=== PATIENT | female | born 1955 | race Caucasian/White ===

== ENCOUNTER 2018-10-27 05:54 | Day surgery (SDC) | payer BC ==
[2018-10-26 17:01] LABS: BASOPHILS % (AUTO) 0.3 % (0-1); EOSINOPHILS # (AUTO) 0.3 X10'3 (0-0.9); HEMATOCRIT 37.3 % (35.0-45.0); HEMOGLOBIN 12.3 g/dl (12.0-16.0); LYMPHOCYTES # (AUTO) 2.9 X10'3 (1.1-4.8); LYMPHOCYTES % (AUTO) 37.5 % (21-51); MEAN CORPUSCULAR HEMOGLOBIN 30.1 PG (27.0-31.0); MEAN CORPUSCULAR VOLUME 91.3 FL (78-98); MEAN PLATELET VOLUME 8.3 FL (7.4-10.4); MONOCYTES # (AUTO) 0.4 X10'3 (0-0.9); MONOCYTES % (AUTO) 4.8 % (2-12); NEUTROPHILS # (AUTO) 4.1 X10'3 (1.8-7.7); NEUTROPHILS % (AUTO) 53.4 % (42-75); PLATELET COUNT 251 X10'3 (140-440); RED BLOOD COUNT 4.09 X10'6 (4.20-5.60); RED CELL DISTRIBUTION WIDTH 14.5 % (11.5-14.5); WHITE BLOOD COUNT 7.7 X10'3 (4.5-11.0)
[2018-10-26 17:08] LABS: PARTIAL THROMBOPLASTIN TIME 28 SECONDS (22-32); PROTHROMBIN TIME 10.3 SECONDS (9.0-12.0)
[2018-10-26 17:14] LABS: ALBUMIN 3.9 G/DL (3.4-5.0); ANION GAP 8 (8-16); BLOOD UREA NITROGEN 18 MG/DL (7-18); BUN/CREATININE RATIO 19.4 (6.6-38.0); CALCIUM 9.5 MG/DL (8.5-10.1); CHLORIDE 102 MMOL/L (99-107); CREATININE 0.93 MG/DL (0.40-0.90); GLUCOSE 90 MG/DL (70-104); POTASSIUM 4.1 MMOL/L (3.5-5.1); SODIUM 140 MMOL/L (135-145); TOTAL CARBON DIOXIDE 30.3 MMOL/L (24-32); eGFR 61 ML/MIN
[~2018-10-27] VITALS: Ht 152.4 cm; Wt 98.0 kg
[2018-10-27] VITALS (18 sets, daily range): BP systolic 134–166; BP diastolic 42–99
[2018-10-27] MEDS ORDERED: LORazepam 0.5 MG tablet PO PRN (06:10)
[2018-10-27] MEDS ORDERED: normal saline 1000ml 1,000 ML IV SCH (06:10)
[2018-10-27] MEDS ORDERED: LIDOcaine 1% (10mg/ml) 2ml vial ONE (06:10)
[2018-10-27] MEDS ORDERED: diphenhydrAMINE 25mg capsule PO PRN (06:10)
[2018-10-27] MEDS ORDERED: MELA5TAB14 PO (06:27)
[2018-10-27] MEDS ORDERED: CARV-49 PO (06:27)
[2018-10-27] MEDS ORDERED: B12 PO (06:27)
[2018-10-27] MEDS ORDERED: ATOR10TA87 PO (06:27)
[2018-10-27] MEDS ORDERED: FISH1CAP15 PO (06:27)
[2018-10-27] MEDS ORDERED: ISOS20TA6 PO (06:27)
[2018-10-27] MEDS ORDERED: ASPI-611 PO (06:27)
[2018-10-27] MEDS ORDERED: MULT-1085 PO (06:27)
[2018-10-27] MEDS ORDERED: SERT100T10 PO (06:27)
[2018-10-27] MEDS ORDERED: NAPR220T67 PO (06:27)
[2018-10-27] MEDS ORDERED: OMEP20TA23 PO (06:27)
[2018-10-27] MEDS ORDERED: IBUP-2417 PO (06:27)
[2018-10-27] MEDS ORDERED: LIDOcaine/PRILOcaine 5gm cream TP ONE (07:15)
[2018-10-27] MEDS ORDERED: nitroGLYCERIN-Tridil 50MG/D5W 250 ML IV ONE (07:23)
[2018-10-27] MEDS ORDERED: fentaNYL/PF 50MCG/1 ML 2ML syringe ONE (07:23)
[2018-10-27] MEDS ORDERED: heparin 1,000unit/ml 10ml vial 10 ML ONE (07:23)
[2018-10-27] MEDS ORDERED: LIDOcaine 1% (10mg/ml)w/preservative injection 20ml MDV ONE (07:23)
[2018-10-27] MEDS ORDERED: iohexol 350MG/ML 100ml bottle IV ONE (07:23)
[2018-10-27] MEDS ORDERED: midazolam 2 mg/2 ml injection ONE (07:23)
[2018-10-27] MEDS ORDERED: iohexol 350 MG/ML 50ML vial IV ONE ×2 (07:23→09:24)
[2018-10-27] MEDS ORDERED: verapamil 2.5 mg/ml inj IV ONE (07:24)
[2018-10-27] MEDS ORDERED: naproxen sodium 220mg tablet PO PRN (14:00)
[2018-10-27] MEDS ORDERED: normal saline 1000ml 1,000 ML IV ONE (14:30)
[2018-10-27] MEDS ORDERED: HYDROcodone/acetaminophen 5mg/325mg tablet PO PRN (14:35)
[2018-10-27] MEDS ORDERED: HYDROcodone/acetaminophen 10/325mg tab PO PRN (14:35)
--- NOTE | 2018-10-27 16:07 | NUR ---
Problems reprioritized. Patient report given, questions answered & plan of care reviewed with DAVID BIRD.
[2018-10-27] MEDS ORDERED: carvedilol 6.25mg tablet PO SCH (20:00)
[2018-10-27] MEDS ORDERED: Melatonin 3mg tablet PO SCH (21:00)
[2018-10-28] MEDS ORDERED: pantoprazole 40mg Tablet.DR PO SCH (07:30)
[2018-10-28] MEDS ORDERED: atorvastatin 10mg tablet PO SCH (08:00)
[2018-10-28] MEDS ORDERED: cyanocobalamin 500mcg tablet PO SCH (08:00)
[2018-10-28] MEDS ORDERED: ibuprofen tablet 400 MG TABLET PO SCH (08:00)
[2018-10-28] MEDS ORDERED: sertraline 50mg tablet PO SCH (08:00)
[2018-10-28] MEDS ORDERED: multivitamins, therapeutics tablet PO SCH (08:00)
[2018-10-28] MEDS ORDERED: isosorbide mononitrate 30mg tab.SR.24H PO SCH (08:00)
[2018-10-28] MEDS ORDERED: OMEGA-3/DHA/EPA/FISH OIL 1 EACH CAPSULE.DR PO SCH (08:00)
[2018-10-28] MEDS ORDERED: aspirin 81mg tab.chew PO SCH (08:30)
== END 2018-10-27 17:55 | disposition home or self-care (01) ==
LOC: SSTAY O 05:54
PROVIDERS: ATTEND Internal Medicine Cardiovascular Disease
DX: I25.10 Atherosclerotic heart disease of native coronary artery without angina pectoris (principal); I10 Essential (primary) hypertension; E78.5 Hyperlipidemia, unspecified; K21.9 Gastro-esophageal reflux disease without esophagitis; F32.9 Major depressive disorder, single episode, unspecified; Z98.890 Other specified postprocedural states; Z90.49 Acquired absence of other specified parts of digestive tract; Z88.1 Allergy status to other antibiotic agents; Z88.0 Allergy status to penicillin; Z79.82 Long term (current) use of aspirin
CPT/HCPCS: 36415; 80048; 85025; 85610; 85730; 93005; 93458; 99152; 99153; A6257; J1644; J2001; J2250; J3010; J3490; J7030; Q0163; Q9967; A4620; C1769

== ENCOUNTER 2018-10-29 10:51 | Emergency (ER) | payer BC ==
[~2018-10-29] VITALS: Ht 152.4 cm; Wt 98.3 kg
[~2018-10-29 10:51] MED LIST: ASPI-611 PO; ATOR10TA87 PO; B12 PO; CARV-49 PO; FISH1CAP15 PO; IBUP-2417 PO; ISOS20TA6 PO; MELA5TAB14 PO; MULT-1085 PO; NAPR220T67 PO; OMEP20TA23 PO; SERT100T10 PO
--- NOTE | 2018-10-29 13:36 | NUR ---
VASCULAR DONE OF RIGHT UPPER THIGH. NOW A WAITING US. PT DENIES NEEDS AT THIS TIEM
[2018-10-29] MEDS ORDERED: morphine 2 MG/ML inj. syringe IV ONE (15:00)
[2018-10-29] MEDS ORDERED: ondansetron/PF 4mg/2ml inj IV ONE (15:00)
--- NOTE | 2018-10-29 15:25 | NUR ---
US AT ATTEMPTED US COMPRESSION. PAIN 10/10 MORPHINE AND ZOFRAN GIVEN. US WILL ATTEMPT AGAIN
--- NOTE | 2018-10-29 16:28 | NUR ---
COMPRESSION U/S UNSUCCESSFUL. DOMONIQUE WISE MADE AWARE, AND ORDERED FEM STOP TO BE PLACED FOR 30 MINUTES. FEM STOP PLACED AT SITE WITH 53mmHg OF PRESSURE.
--- NOTE | 2018-10-29 17:17 | NUR ---
Pressure released from Fem Stop after 45 minutes. Vascular has been paged. Pt reports some relief following releade of Fem Stop.
--- NOTE | 2018-10-29 18:01 | NUR ---
VASCULAR AT BS.
--- NOTE | 2018-10-29 18:15 | NUR ---
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 Informed PA Vahid, as well as PA Peralta. Fem Stop then reapplied to site using US at 55mmHg. Cap Refill 2secs, 2+ DP/PT pulses on right. US to return in one hour, states new order not needed.
[2018-10-29 20:38] VITALS: BP 163/104
== END 2018-10-29 20:42 | disposition home or self-care (01) ==
LOC: ER 10:52
DX: I72.4 Aneurysm of artery of lower extremity (principal); I10 Essential (primary) hypertension; I25.10 Atherosclerotic heart disease of native coronary artery without angina pectoris; Z88.0 Allergy status to penicillin; Z88.2 Allergy status to sulfonamides; Z79.82 Long term (current) use of aspirin; Z98.890 Other specified postprocedural states
CPT/HCPCS: 76936; 93005; 93926; 93971; 96374; 96375; 99284; J2270; J2405

== ENCOUNTER 2018-11-11 08:03 | Day surgery (SDC) | payer BC ==
[~2018-11-11] VITALS: Ht 152.4 cm; Wt 97.1 kg
[~2018-11-11 08:03] MED LIST changes: +LIDOcaine 1% 30ml preserv. free vial IJ STA
[2018-11-11 08:43] VITALS: BP 143/92
[2018-11-11] MEDS ORDERED: Thrombin (Bovine) 5,000 unit vial TP ONE (10:20)
[2018-11-11] MEDS ORDERED: LIDOcaine 1%/PF 5ML 10 MG/ML VIAL ONE (10:32)
== END 2018-11-11 11:15 | disposition home or self-care (01) ==
LOC: SSTAY O 08:03
PROVIDERS: ATTEND Radiology Vascular & Interventional Radiology
DX: I72.8 Aneurysm of other specified arteries (principal); I10 Essential (primary) hypertension; E66.9 Obesity, unspecified; K21.9 Gastro-esophageal reflux disease without esophagitis; E78.5 Hyperlipidemia, unspecified; F32.9 Major depressive disorder, single episode, unspecified; Z90.49 Acquired absence of other specified parts of digestive tract; Z98.890 Other specified postprocedural states; Z88.0 Allergy status to penicillin; Z88.8 Allergy status to other drugs, medicaments and biological substances; Z79.899 Other long term (current) drug therapy
CPT/HCPCS: 76882; J2001

== ENCOUNTER → 2024-12-14 | Outpatient (CLI) | payer MEDICARE ==
[~2024-12-14] MED LIST changes: -ISOS20TA6 PO; -LIDOcaine 1% 30ml preserv. free vial IJ STA; -MELA5TAB14 PO; +MELA5TAB66 PO; +SERT-434 PO; -SERT100T10 PO
--- NOTE | 2024-12-15 05:51 | RADIOLOGY REPORT ---
CLINICAL INDICATION: 69 years old, Female; EFFUSION,LEFT ANKLE;PAIN IN LEFT FOOT. TECHNIQUE: Noncontrast CT of the left ankle was performed. Sagittal and coronal reformatted images ar e provided. COMPARISON: None CT Dose: CTDI volume is 14.4 mGy. Dose-length product is 246.4 mGy*cm FINDINGS: There are postsurgical changes from arthrodesis of the calcaneus and the cuboid. There is a bone bloc k in between the calcaneus and cuboid. There are screws within the subtalar joint. There also screws traversing the tarsal bones and calcaneus. There is a nother bone block in the medial cuneiform. Bhaskar dware appears to be intact. There is no solid fusion across the subtalar joint space or across the ca lcaneocuboid joint space. No definite fusion noted across the tarsal bone and calcaneus. No acute fr acture. Soft tissue swelling of the foot. No significant joint effusion. Bone harvest site noted in t he distal tibia. The talar dome is smooth and the ankle mortise is symmetric. IMPRESSION: 1. Postsurgical changes from multiple arthrodeses in the left hindfoot. No definite bony fusion noted . 2. Soft tissue swelling. No acute osseous abnormality. All CT scans at this medical facility are performed using dose modulation techniques as appropriate t o a performed exam including the following: Automated exposure control was utilized; adjustment of th e MA and/or KV according to patient size; and use of iterative reconstruction technique.
--- NOTE | 2024-12-15 08:42 | RADIOLOGY REPORT ---
CLINICAL INDICATION: 69 years old, Female; EFFUSION,LEFT ANKLE;PAIN IN LEFT FOOT. TECHNIQUE: Noncontrast CT of the left foot was performed. Sagittal and coronal reformatted images are provided. COMPARISON: None CT Dose: CTDI volume is 14.4 mGy. Dose-length product is 246.4 mGy*cm FINDINGS: There are postsurgical changes from arthrodesis of the calcaneus and the cuboid. There is a bone bloc k in between the calcaneus and cuboid. There are screws within the subtalar joint. There also screws traversing the tarsal bones and calcaneus. There is a nother bone block in the medial cuneiform. Hard malik appears to be intact. There is no solid fusion across the subtalar joint space or across the agueda caneocuboid joint space. No definite fusion noted across the tarsal bone and calcaneus. No acute frac ture. Soft tissue swelling of the foot. No significant joint effusion. Bone harvest site noted in the distal tibia. The talar dome is smooth and the ankle mortise is symmetric. IMPRESSION: 1. Postsurgical changes from multiple arthrodeses in the left hindfoot. No definite bony fusion noted . 2. Soft tissue swelling. No acute osseous abnormality. All CT scans at this medical facility are performed using dose modulation techniques as appropriate t o a performed exam including the following: Automated exposure control was utilized; adjustment of th e MA and/or KV according to patient size; and use of iterative reconstruction technique.
== END | disposition home or self-care (01) ==
LOC: RAD 14:13
PROVIDERS: ATTEND Podiatrist Foot & Ankle Surgery
DX: M21.42 Flat foot [pes planus] (acquired), left foot (principal); M25.472 Effusion, left ankle; M79.672 Pain in left foot; M25.375 Other instability, left foot; M25.572 Pain in left ankle and joints of left foot; M25.471 Effusion, right ankle; M21.6X2 Other acquired deformities of left foot; M25.374 Other instability, right foot; M25.571 Pain in right ankle and joints of right foot; Z98.1 Arthrodesis status; Z98.890 Other specified postprocedural states; M79.89 Other specified soft tissue disorders
CPT/HCPCS: 73700

== ENCOUNTER 2025-03-13 08:09 | Observation (INO) | payer MEDICARE ==
[2025-03-08 15:39] LABS: MEAN PLATELET VOLUME 8.0 FL (7.4-10.4); PRE OP HEMATOCRIT 39.4 % (35.0-45.0); PRE OP HEMOGLOBIN 13.5 g/dL (12.0-16.0); PRE OP PLATELET COUNT 224 X10'3 (140-440); PRE OP WHITE BLOOD COUNT 8.4 10'3 (4.8-10.8); RED CELL DISTRIBUTION WIDTH 14.8 % (11.5-14.5)
[2025-03-08 15:42] LABS: LEUKOCYTE ESTERASE ,URINE NEGATIVE (Neg); NITRITES, URINE NEGATIVE (Neg); OCCULT BLOOD,URINE SMALL (Neg)
[2025-03-08 15:52] LABS: PRE OP ANION GAP 4 (8-16); PRE OP GLUCOSE 86 MG/DL (70-104); PRE OP POTASSIUM 3.8 MMOL/L (3.4-5.1); PRE OP SODIUM 138 MMOL/L (135-145); TOTAL CARBON DIOXIDE 32.3 MMOL/L (24-32)
[2025-03-08 15:53] LABS: CREATININE 0.89 MG/DL (0.40-0.90); PRE OP ALT 27 U/L (30-65); PRE OP AST 14 U/L (10-37); PRE OP BILIRUB, TOTAL 0.6 MG/DL (0.0-1.0); eGFR 63 ML/MIN
[2025-03-08 15:57] LABS: UA COLLECTION TYPE CLN CATCH MIDSTREAM
[2025-03-08 16:04] LABS: SQUAMOUS EPITHELIAL CELL,UR MODERATE /LPF (FEW)
[2025-03-08 16:08] LABS: CAL OXALATE CRYSTALS FEW /HPF (NEGATIVE)
[2025-03-13] VITALS (23 sets, daily range): BP systolic 101–153; BP diastolic 58–105; PULSE 73–88; RESP 9–20; TEMP 96.5–97.8; O2SAT 89–100
[~2025-03-13] VITALS: Ht 154.9 cm; Wt 93.1 kg
[2025-03-13] MEDS: DOCUMENT DATE & TIME OF BETA-BLOCKER PO ONE (05:30)
[~2025-03-13 08:09] MED LIST changes: -B12 PO; +CETI10CA PO; -FISH1CAP15 PO; -IBUP-2417 PO; -MULT-1085 PO; -NAPR220T67 PO; +OMEP-271 PO; -OMEP20TA23 PO; -SERT-434 PO; +SERT150C PO
[2025-03-13] MEDS ORDERED: cloNIDine hcl/PF 100mcg/ml inj ONE (09:26)
[2025-03-13] MEDS: VANCOMYCIN/H2O 1.5g/300mL PB 300 ML IV ONE (09:31)
[2025-03-13] MEDS: ringers solution, lacted 1,000 ML IV SCH ×2 (09:31→13:55)
[2025-03-13] MEDS ORDERED: bacitracin 15gm ointment TP ONE (09:35)
[2025-03-13] MEDS ORDERED: BUPIVAcaine 2.5mg/ml inj 50ml vial (contains preservative) ONE (09:36)
[2025-03-13] MEDS ORDERED: fentaNYL /PF 50mcg/ml 5ml ampule ONE (10:28)
[2025-03-13] MEDS ORDERED: midazolam 1 mg/ML 2ml injection ONE (10:28)
[2025-03-13] MEDS ORDERED: heparin 10,000 units/1 ML INJ ONE (11:41)
[2025-03-13] MEDS ORDERED: propofol inj 20 ML IV ONE ×2 (11:52)
[2025-03-13] MEDS ORDERED: ePHEDrine 50MG/ML INJ. ONE (11:52)
[2025-03-13] MEDS ORDERED: dexamethasone sod phosphate 4mg/ml inj. ONE (11:53)
[2025-03-13] MEDS ORDERED: LIDOcaine 2% (20mg/ml) 5ml vial ONE (11:53)
[2025-03-13] MEDS ORDERED: ROPIVAcaine 0.5% (5mg/ml) 30ml vial ONE (11:53)
[2025-03-13] MEDS ORDERED: 0.9 % SODIUM CHLORIDE 10 ML VIAL ONE ×2 (11:53)
[2025-03-13] MEDS ORDERED: magnesium hydroxide 30ml (MOM) UD suspension PO PRN (13:50)
[2025-03-13] MEDS ORDERED: bisacodyl 10mg suppository rectal RC PRN (13:50)
[2025-03-13] MEDS ORDERED: ondansetron/PF 4mg/2ml inj IV PRN ×2 (13:50→13:55)
[2025-03-13] MEDS ORDERED: hydrALAZINE 20mg/ml inj. IV PRN (13:55)
[2025-03-13] MEDS ORDERED: morphine 4 MG/ML inj SYRINge IV PRN (13:55)
[2025-03-13] MEDS ORDERED: meperidine/PF 25mg/ml syringe IV PRN (13:55)
[2025-03-13] MEDS ORDERED: labetalol 20mg/4ml (5mg/ml) syringe IV PRN (13:55)
[2025-03-13] MEDS ORDERED: HYDROmorphone/PF 0.2 MG/ML SYRINGE IV PRN ×2 (13:55)
[2025-03-13] MEDS: acetaminophen 1,000mg/100ml IV 100 ML IV PRN (14:53)
--- NOTE | 2025-03-13 15:20 | OPERATIVE REPORT ---
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 PROCEDURES: * Bone marrow aspiration harvest, tibia. * Hardware removal. * Revision triple arthrodesis. * Revision cotton medial cuneiform arthrodesis. This is all left foot and ankle. SURGEON: Jose Casas DPM INTRAMURAL DIRECTOR: Dr. Brett Spencer, KIMANI fellow. External Grinder Tool was needed to decrease tourniquet time, help with efficiency and retraction throughout the entirety of the procedure. ANESTHESIA: General anesthesia. HEMOSTASIS: A thigh tourniquet at 300 mmHg. FINDINGS: None. COMPLICATIONS: None. SPECIMENS: We sent left foot bone for pathological specimen. ESTIMATED BLOOD LOSS: Less than 20 mL. HARDWARE: We used DJO and [id number]. INDICATIONS: The patient presented to the office with the above-listed complaints, which have been unresponsive to conservative treatment options, thus, surgical options have been offered along with all potential risks, complications, and surgical outcomes being fully explained to the patient's level of understanding. No guarantees were given. Clinical and radiographic data correlate with the above diagnosis. The patient received a triple arthrodesis for her bad hindfoot instability and flatfoot, and unfortunately, after appropriate nonoperative and operative care, the patient still had pain and still had nonunions based on a CT scan. I offered a surgical fixation as well as revision of the nonunion sites. She understood that there are no guarantees with the revision and nonunion site, but I did offer to hopefully give her some more stability and give her better pain relief once we can achieve more fusion. This is the route that she elected to undergo. DESCRIPTION OF PROCEDURE: The patient was brought to the operating room and placed on the operating room in the supine position. The patient was induced under general anesthesia. The left foot and ankle were prepped and draped in the usual aseptic fashion. Previously applied thigh tourniquet was inflated to 300 mmHg after a timeout was called and preoperative antibiotics were given and dosed appropriately. Hardware removal of left foot and ankle. We then brought our attention to the medial and lateral aspects of the patient's left foot. Under fluoroscopic imaging, I did isolate all of the hardware, which was the [employer] hardware and we did place guidewires down the cannulated screws and then we removed all of the hardware using a hardware removal set. We had to make multiple incisions in order to do this. All the hardware was removed and intraoperative fluoroscopic imaging confirmed this. BMA, bone marrow aspirate harvest. Before the tourniquet was even inflated, we did isolate the medial proximal tibial face, and at this region, we then inserted a Jamshidi needle attached to a 30 mL syringe and we obtained a large amount of bone marrow aspiration within the syringe, which was then mixed with heparin and then placed with a DBM bone putty mixture for further implantation into our nonunion sites. This small incision was closed using a nylon. Revision triple arthrodesis. We then brought our attention to the medial and lateral aspect of the patient's hindfoot. We isolated the CC of the subtalar joint and the talonavicular joints. It was noted that there was a large portion of the talonavicular joint that appeared to be fused and had crossing arthrodesis sites. Of the subtalar joint, there was a good portion of the subtalar joint that had bony bridging as well, but there was also an area of nonunion. We did prep all of the areas of nonunion that we could visualize with a curette, a rongeur, and then a rozina. We made sure to do this until fresh bleeding bone was identified. As we opened the calcaneocuboid joint region, there was an allograft wedge that we had placed in there originally and this bone did not look healthy, so therefore, we took a specimen of this bone and sent it for our pathological specimen. It appeared to be of the appearance of bone, so therefore, we resected all the bone that we could visualize. We then re-prepped the CC joint appropriately. We then filled all of our regions with a DBM bone putty mixed with our BMA harvest and this was then stuffed into the appropriate region. After this, we then placed a locking plate medially and laterally over the TN and the calcaneocuboid joint. We then placed a Dighton 7.0 DJO screw through the subtalar joint. All of our screws and hardware had excellent compression, stability, and placement of our hardware once we checked using intraoperative fluoroscopic imaging. It was noted that there was excellent stability of all of our hindfoot once we stressed under fluoroscopic imaging as well. Revision cotton medial cuneiform osteotomy. We then made a separate incision over the cotton site. We dissected down to the cotton site after we made this incision using similar dissection technique, and unfortunately, the cotton site appeared to be of the same appearance of the calcaneocuboid bone. The allograft did not take and looked to be of bone, so therefore, we resected all that we could and then re-fenestrated until fresh blading bone was identified and then replaced the graft. A [id number] wedge was then used and we went up a millimeter in the size wedge that we felt like we needed in order to achieve some more compression and this was a size 6 small [id number] cotton wedge. This was soaked in our BMA, and then we placed it into our region of the medial cuneiform and impacted it into an appropriate position, which we were very happy with. Final fluoroscopic imaging was taken and confirmed the hardware placement. We were happy with the hardware placement, so therefore, we flushed all of our incisions with copious amounts of sterile normal saline. We closed in a layered fashion. A 3-0 Vicryl was used for closure of subcutaneous tissue and 3-0 nylon suture for skin in a horizontal mattress technique. The incisions were then dressed with triple antibiotic ointment followed by Adaptic, 4 x 4's, and Webril. The patient was placed in a well-padded posterior splint with the foot held in neutral position. The tourniquet was deflated. The patient was taken out of general anesthesia and placed in the PACU with vital signs stable and vascular status intact to the operative foot. The patient is going to be nonweightbearing to the operative foot and is instructed to follow up with me in approximately 1-2 weeks after surgery. The entire case was performed in a teaching fashion. I was available pre and postoperatively to answer questions from the patient and her family. The patient was admitted to the hospital floor for further management as this was a recommendation from the anesthesiologist. Throughout the entire procedure, I did not visualize any areas of purulence or infected tissue. We are hoping that with more stability and with the revision site and BMA and DBM that the patient will achieve further signs of bony healing. All of the patient's questions were answered today and she will follow up with me in clinic after her stay in the hospital. JOSE CASAS DPM TID: [id number] RECEIPT: [id number] MARKO/DIVINA
[2025-03-14 05:41] LABS: MEAN PLATELET VOLUME 8.3 FL (7.4-10.4); RED CELL DISTRIBUTION WIDTH 14.9 % (11.5-14.5)
[2025-03-14 06:00] VITALS: BP 130/61; PULSE 71; RESP 14; TEMP 98.1; O2SAT 95
[2025-03-14 06:46] LABS: TOTAL CARBON DIOXIDE 27.2 MMOL/L (24-32)
[2025-03-14 10:00] VITALS: BP 156/54; PULSE 92; RESP 19; TEMP 97.5; O2SAT 96
[2025-03-14] MEDS ORDERED: JUVEN Smoothie Arginine/Glut./Ca2+Bmb (Juven 19.3pkt) 240ml cup PO SCH (17:30)
== END 2025-03-14 14:50 | disposition home or self-care (01) ==
LOC: PAS 08:09 → SUR 3N 13:53
PROVIDERS: ADMIT Podiatrist Foot & Ankle Surgery; ATTEND Podiatrist Foot & Ankle Surgery
DX: M21.6X2 Other acquired deformities of left foot (principal); M25.572 Pain in left ankle and joints of left foot; M96.0 Pseudarthrosis after fusion or arthrodesis; E66.811 Obesity, class 1; F41.9 Anxiety disorder, unspecified; K21.9 Gastro-esophageal reflux disease without esophagitis; Z79.899 Other long term (current) drug therapy; Z98.890 Other specified postprocedural states; Z68.38 Body mass index [BMI] 38.0-38.9, adult
CPT/HCPCS: 28715; 28740; 73620; 76000; 80051; 80053; 81001; 82948; 96365; 97161; A4615; A4618; A7000; C1713; C1769; G0378; J3375; J3490; J7120; 36415; 85025; 97530; 97535; A6223; A6253; A6449; J0131; J0690; J0735; J1100; J1644; J2003; J2250; J2704; J2795; J3010